=== PATIENT | male | born 1960 | race Caucasian/White ===

== ENCOUNTER 2016-06-13 08:00 | Outpatient (CLI) | payer OTHER | END 2016-06-13 08:01 | disposition home or self-care (01) | DX: E78.00 Pure hypercholesterolemia, unspecified (principal); R07.9 Chest pain, unspecified ==

== ENCOUNTER 2016-07-19 10:38 | Outpatient (CLI) | payer OTHER ==
[2016-07-19] MEDS ORDERED: ADENOSINE 60 MG/20 ML VIAL IVP ONE (13:30)
== END 2016-07-19 10:39 | disposition home or self-care (01) ==
DX: R07.9 Chest pain, unspecified (principal); I49.1 Atrial premature depolarization
CPT/HCPCS: 78452; 93017; A9500; J0153

== ENCOUNTER 2017-02-26 09:16 | Outpatient (CLI) | payer OTHER | END 2017-02-26 09:17 | disposition critical access hospital (66) | LOC: EMS 09:16 | PROVIDERS: ATTEND Surgery | DX: R11.2 Nausea with vomiting, unspecified (principal); R05 Cough; R53.1 Weakness; R50.9 Fever, unspecified | CPT/HCPCS: A0425; A0427 ==

== ENCOUNTER 2017-02-26 09:39 | Emergency (ER) | payer OTHER ==
--- NOTE | 2017-02-26 10:20 | ED Physician Documentation ---
PD HPI NVD - Stated complaint Stated Complaint: FLU SX - Chief complaint Chief Complaint: Fever - History obtained from History obtained from: Patient - History of Present Illness Timing - onset: How many days ago (few) Timing - duration: Days Timing - details: Abrupt onset, Still present Associated symptoms: Fever, Other (cough, aches, fatigue, with nausea and diarrhea. Feeling weak and lightheaded.). No: Abdominal pain Contributing factors: No: Sick contact, Bad food, Travel, Recent antibiotics Improved by: Laying still Worsened by: Eating Similar symptoms before: Has not had sx before Recently seen: Not recently seen Review of Systems Constitutional: reports: Fever, Chills, Myalgias, Fatigue Nose: reports: Congestion. denies: Rhinorrhea / runny nose Throat: denies: Sore throat Respiratory: reports: Cough GI: reports: Nausea, Vomiting, Diarrhea. denies: Abdominal Pain : denies: Dysuria, Frequency Skin: denies: Rash, Lesions Neurologic: reports: Generalized weakness, Headache. denies: Focal weakness, Numbness, Near syncope, Confused, Altered mental status, Head injury Psychiatric: reports: Insomnia Immunocompromised: denies: Immunocompromised PD PAST MEDICAL HISTORY - Past Medical History Past Medical History: Yes Cardiovascular: Hypertension, High cholesterol, Coronary artery disease, [place] Respiratory: COPD Psych: Anxiety - Past Surgical History Cardiovascular: Coronary stent - Present Medications Home Medications: Ambulatory Orders Medication Instructions Recorded Confirmed ALPRAZolam [Alprazolam] 0.25 mg PO DAILY 09/09/14 02/26/17 Aspirin [Aspir-Low] 81 mg PO DAILY 09/09/14 02/26/17 Tiotropium [place] [Spiriva] 18 mcg IH DAILY 09/09/14 02/26/17 Albuterol Sulf [Ventolin Hfa 1 - 2 puffs INH Q4HR PRN #1 inhaler 02/26/17 Inhaler] Dexamethasone [Decadron] 4 mg PO DAILY #5 tablet 02/26/17 Diphenoxylate HCl/Atropine 1 each PO Q6H PRN #12 tablet 02/26/17 [Diphenoxylate-Atrop 2.5-0.025] Ondansetron Odt [Zofran] 4 mg TL Q6H PRN #15 tablet 02/26/17 Simvastatin 80 mg PO DAILY PM 02/26/17 02/26/17 guaiFENesin/CODEINE [Robitussin AC] 10 ml PO Q6H PRN #240 ml 02/26/17 - Allergies Allergies/Adverse Reactions: Allergies Allergy/AdvReac Type Severity Reaction Status Date / Time penicillin * [penicillin] AdvReac Rash Verified 09/09/14 14:10 - Social History Does the pt smoke?: Yes Smoking Status: Current every day smoker PD ED PE NORMAL - Vitals Vital signs reviewed: Yes - General General: Alert and oriented X 3, Well developed/nourished - HEENT HEENT: Ears normal, Pharynx benign. No: Moist mucous membranes - Neck Neck: Supple, no meningeal sign, No adenopathy - Cardiac Cardiac: RRR, No murmur - Respiratory Respiratory: Clear bilaterally - Abdomen Abdomen: Normal bowel sounds, Soft, Non tender, Non distended - Male Male : Deferred - Rectal Rectal: Deferred - Back Back: No CVA TTP - Derm Derm: Normal color, Warm and dry - Extremities Extremities: No tenderness to palpate, Normal ROM s pain, No edema, No calf tenderness / cord - Neuro Neuro: Alert and oriented X 3, No motor deficit, Normal speech Results - Vitals Vitals: Oxygen O2 Source Room air - Labs Labs: Laboratory Tests 02/26/17 11:03 Sodium 138 Potassium 4.1 Chloride 106 Carbon Dioxide 24 Anion Gap 8.0 BUN 16 Creatinine 0.7 Estimated GFR (MDRD) 116 Glucose 111 H Calcium 8.5 Total Bilirubin 0.3 AST 18 ALT 19 Alkaline Phosphatase 43 Total Protein 6.1 L Albumin 3.6 Globulin 2.5 Albumin/Globulin Ratio 1.4 Lipase 24 - Rads (name of study) chest Radiology: Prelim report reviewed (c/w COPD) PD MEDICAL DECISION MAKING - ED course Complexity details: reviewed results, considered differential, d/w patient Departure - Departure Disposition: 01 Home, Self Care Clinical Impression: Dehydration, Flu-like symptoms, Nausea vomiting and diarrhea Condition: Stable Record reviewed to determine appropriate education?: Yes Instructions: ED Flu Follow-Up: Reba Fan PA-C [Primary Care Provider] - Prescriptions: Albuterol Sulf [Ventolin Hfa Inhaler] 1 - 2 puffs INH Q4HR PRN #1 inhaler PRN Reason: Shortness Of Air/Wheezing Dexamethasone [Decadron] 4 mg PO DAILY #5 tablet Diphenoxylate HCl/Atropine [Diphenoxylate-Atrop 2.5-0.025] 1 each PO Q6H PRN # 12 tablet PRN Reason: Diarrhea guaiFENesin/CODEINE [Robitussin AC] 10 ml PO Q6H PRN #240 ml PRN Reason: Cough Ondansetron Odt [Zofran] 4 mg TL Q6H PRN #15 tablet PRN Reason: Nausea / Vomiting Comments: Drink lots of fluids. Ondansetron if needed for nausea. Lomotil for diarrhea. For your breathing use the albuterol inhaler 2 puffs 4 times a day for the next 7-10 days. Decadron for inflammation of the airway should improve your breathing. Add cough medicine if needed. Recheck if not improving over the next several days. Discharge Date/Time: 02/26/17 12:59
[2017-02-26] MEDS ORDERED: ONDANSETRON 4 MG/2 ML VIAL IVP STA (10:33)
[2017-02-26] MEDS ORDERED: SODIUM CHLORIDE 0.9% 1,000 ML IV ONE ×2 (10:33→10:34)
[2017-02-26] MEDS ORDERED: DIPHENOX/ATROPINE 2.5/0.025 MG TABLET PO STA (10:34)
[2017-02-26] MEDS ORDERED: DEXAMETHASONE 10 MG/ML VIAL IVP STA (10:34)
--- NOTE | 2017-02-26 11:26 | XRAY Report ---
EXAM: CHEST RADIOGRAPHY EXAM DATE: 02/26/2017 10:52 AM. CLINICAL HISTORY: Chest pain left sided. COMPARISON: 03/09/2014. TECHNIQUE: 2 views. FINDINGS: Lungs/Pleura: Apparent 2 cm nodular density projecting over the right inferior lung, overlying the po sterior right 10th rib, was not present on the prior study. No other focal pulmonary opacity. Mild bi lateral diffuse interstitial opacities. No pneumothorax or pleural effusion. The lungs are hyperinfla leslye. Mediastinum: Heart and mediastinal contours are unremarkable. Other: None. IMPRESSION: 1. No radiographically apparent acute abnormality in the chest. 2. Findings suggest COPD. 3. Density projecting over the lower right lung may represent a confluence of shadows versus a pulmon keely nodule. Short interval follow-up chest radiography versus chest CT is recommended for further brigette luation. [facility] Referring Provider Line: [phone] SITE ID: [id number]
[2017-02-26 11:30] LABS: ALBUMIN 3.6 g/dL (3.2-5.5); ALBUMIN/GLOBULIN RATIO 1.4 (1.0-2.2); BILIRUBIN,TOTAL 0.3 mg/dL (0.2-1.0); CALCIUM 8.5 mg/dL (8.5-10.3); CREATININE 0.7 mg/dL (0.6-1.2); TOTAL PROTEIN 6.1 g/dL (6.7-8.2)
[2017-02-26 12:52] VITALS: BP 115/85
== END 2017-02-26 12:59 | disposition home or self-care (01) ==
LOC: EDUNIT# → ED 09:39
DX: E86.0 Dehydration (principal); R11.2 Nausea with vomiting, unspecified; R19.7 Diarrhea, unspecified; I10 Essential (primary) hypertension; E78.00 Pure hypercholesterolemia, unspecified; I25.10 Atherosclerotic heart disease of native coronary artery without angina pectoris; I25.2 Old myocardial infarction; F17.200 Nicotine dependence, unspecified, uncomplicated; Z79.82 Long term (current) use of aspirin
CPT/HCPCS: 36415; 71046; 80053; 83690; 96361; 96374; 99284; A9270

== ENCOUNTER 2018-04-10 09:17 | Outpatient (CLI) | payer OTHER ==
--- NOTE | 2018-04-10 15:33 | XRAY Report ---
Reason: CHEST PAIN NON CARDIAC Procedure Date: 04/10/2018 Accession Number: [id number] / [id number] Procedure: XR - Chest 4 Views X-Ray CPT Code: 62184 FULL RESULT: EXAM: CHEST RADIOGRAPHY EXAM DATE: 04/10/2018 10:08 AM. CLINICAL HISTORY: Chest pain COMPARISON: CHEST 2 VIEW 02/26/2017 10:36 AM XR CHEST PA AND LAT 04/13/2008 8:54 AM. TECHNIQUE: 2 views. FINDINGS: Lungs/Pleura: No focal opacities evident. No pleural effusion. No pneumothorax. Lungs are well expanded. Mediastinum: Heart and mediastinal contours are unremarkable. Other: None. IMPRESSION: No acute intrathoracic plain film abnormality. [facility]
== END 2018-04-10 09:18 | disposition home or self-care (01) ==
LOC: DI 09:17
PROVIDERS: ATTEND Family Medicine
DX: R07.89 Other chest pain (principal); J44.9 Chronic obstructive pulmonary disease, unspecified
CPT/HCPCS: 36415; 71048; 80053; 85025

== ENCOUNTER 2018-04-10 10:29 | Outpatient (CLI) | payer OTHER ==
[2018-04-10 18:12] LABS: ALBUMIN 4.1 g/dL (3.2-5.5); ALBUMIN/GLOBULIN RATIO 1.6 (1.0-2.2); BILIRUBIN,TOTAL 0.7 mg/dL (0.2-1.0); CALCIUM 9.1 mg/dL (8.5-10.3); CREATININE 0.8 mg/dL (0.6-1.2); TOTAL PROTEIN 6.7 g/dL (6.7-8.2)
[2018-04-10 18:18] LABS: BASOPHILS % (AUTO) 0.6 %; EOSINOPHILS # (AUTO) 0.1 10^3/uL (0.0-0.7); EOSINOPHILS % (AUTO) 0.7 %; HGB - HEMOGLOBIN 15.1 g/dL (14.0-18.0); LYMPHOCYTES # (AUTO) 1.8 10^3/uL (1.5-3.5); LYMPHOCYTES % (AUTO) 26.4 %; MEAN CORPUSCULAR HEMOGLOBIN 30.6 pg (27.0-31.0); MEAN CORPUSCULAR HGB CONC 32.9 g/dL (32.0-36.0); MEAN PLATELET VOLUME 8.7 fL (7.4-11.4); MONOCYTES # (AUTO) 0.5 10^3/uL (0.0-1.0); MONOCYTES % (AUTO) 7.6 %; NEUTROPHILS # (AUTO) 4.4 10^3/uL (1.5-6.6); NEUTROPHILS % (AUTO) 64.7 %; PLT - PLATELET COUNT 250 10^3/uL (130-450); RED BLOOD COUNT 4.92 10^6/uL (4.70-6.10); RED CELL DISTRIBUTION WIDTH 15.3 % (12.0-15.0); WHITE BLOOD COUNT 6.9 x10^3/uL (4.8-10.8)
== END 2018-04-10 10:30 | disposition home or self-care (01) ==
LOC: LAB.F 10:29
PROVIDERS: ATTEND Family Medicine
DX: R07.89 Other chest pain (principal); J44.9 Chronic obstructive pulmonary disease, unspecified
CPT/HCPCS: 36415; 80053; 85025

== ENCOUNTER 2019-11-08 20:22 | Emergency (ER) | payer OTHER ==
[2019-11-08] MEDS ORDERED: HYDROmorphone 1 MG/ML CARPUJECT IVP STA ×2 (20:42→21:38)
[2019-11-08 20:55] LABS: BASOPHILS # (AUTO) 0.1 10^3/uL (0.0-0.1); BASOPHILS % (AUTO) 2.4 %; EOSINOPHILS # (AUTO) 0.1 10^3/uL (0.0-0.7); EOSINOPHILS % (AUTO) 3.3 %; HGB - HEMOGLOBIN 15.2 g/dL (14.0-18.0); LYMPHOCYTES # (AUTO) 1.4 10^3/uL (1.5-3.5); LYMPHOCYTES % (AUTO) 31.9 %; MEAN CORPUSCULAR HEMOGLOBIN 30.8 pg (27.0-31.0); MEAN CORPUSCULAR HGB CONC 32.8 g/dL (32.0-36.0); MEAN CORPUSCULAR VOLUME 93.9 fL (80.0-94.0); MEAN PLATELET VOLUME 10.5 fL (7.4-11.4); MONOCYTES # (AUTO) 0.6 10^3/uL (0.0-1.0); MONOCYTES % (AUTO) 15.1 %; NEUTROPHILS % (AUTO) 47.1 %; PLT - PLATELET COUNT 210 10^3/uL (130-450); RED BLOOD COUNT 4.93 10^6/uL (4.70-6.10); RED CELL DISTRIBUTION WIDTH 14.6 % (12.0-15.0); WHITE BLOOD COUNT 4.2 x10^3/uL (4.8-10.8)
[2019-11-08 21:08] LABS: ALBUMIN 4.1 g/dL (3.2-5.5); ALBUMIN/GLOBULIN RATIO 1.5 (1.0-2.2); BILIRUBIN,TOTAL 0.6 mg/dL (0.2-1.0); CALCIUM 9.4 mg/dL (8.5-10.3); TOTAL PROTEIN 6.8 g/dL (6.7-8.2)
[2019-11-08] MEDS ORDERED: IOVERSOL 320 100 ML VIAL IVP ONE ×2 (21:08→21:31)
--- NOTE | 2019-11-08 21:23 | ED Physician Documentation ---
History of Present Illness - Stated complaint Stated Complaint: RIGHT BACKSIDE PX - Chief complaint Chief Complaint: Back Pain - History obtained from History obtained from: Patient - History of Present Illness Timing: How many days ago (5) Pain level max: 10 Pain level now: 10 - Additonal information Additional information: 59-year-old male presents to the emergency department complaining of right perirectal pain. Ongoing for the past 5 days. Worse with movement, nothing makes it better. Unable to sit or lie down. Does not recall any injury. Denies any sexual activity over the past 10 years with a partner. Denies any rectal foreign bodies. No fevers. No chills. States he occasionally has a difficult time urinating. Review of Systems Ten Systems: 10 systems reviewed and negative Constitutional: denies: Fever, Chills Ears: denies: Ear pain Nose: denies: Rhinorrhea / runny nose, Congestion Respiratory: denies: Cough GI: denies: Nausea, Vomiting, Diarrhea : reports: Hesitancy. denies: Unable to Void Skin: denies: Rash Musculoskeletal: denies: Neck pain, Back pain Neurologic: denies: Focal weakness, Numbness, Headache PD PAST MEDICAL HISTORY - Past Medical History Cardiovascular: Hypertension, High cholesterol, Coronary artery disease, [place] Respiratory: COPD Psych: Anxiety - Past Surgical History Cardiovascular: Coronary stent - Present Medications Home Medications: Ambulatory Orders Medication Instructions Recorded Confirmed ALPRAZolam [Alprazolam] 0.25 mg PO DAILY 09/09/14 02/26/17 Aspirin [Aspir-Low] 81 mg PO DAILY 09/09/14 02/26/17 Tiotropium [place] [Spiriva] 18 mcg IH DAILY 09/09/14 02/26/17 Albuterol Sulf [Ventolin Hfa 1 - 2 puffs INH Q4HR PRN #1 inhaler 02/26/17 Inhaler] Diphenoxylate HCl/Atropine 1 each PO Q6H PRN #12 tablet 02/26/17 [Diphenoxylate-Atrop 2.5-0.025] Ondansetron Odt [Zofran] 4 mg TL Q6H PRN #15 tablet 02/26/17 Simvastatin 80 mg PO DAILY PM 02/26/17 02/26/17 dexAMETHasone [Decadron] 4 mg PO DAILY #5 tablet 02/26/17 guaiFENesin/CODEINE [Robitussin AC] 10 ml PO Q6H PRN #240 ml 02/26/17 Ondansetron Odt [Zofran] 4 mg TL Q6H PRN #10 tablet 11/08/19 Oxycodone HCl/Acetaminophen 1 - 2 each PO Q6H PRN #14 tablet 11/08/19 [Percocet 5-325 mg Tablet] Sulfamethox/Trimeth 800/160 1 each PO BID #84 tablet 11/08/19 [Bactrim Ds 800/160] - Allergies Allergies/Adverse Reactions: Allergies Allergy/AdvReac Type Severity Reaction Status Date / Time penicillin * [penicillin] AdvReac Rash Verified 11/08/19 20:30 - Social History Does the pt smoke?: Yes Smoking Status: Current every day smoker Does the pt drink ETOH?: No Does the pt have substance abuse?: No - Immunizations Immunizations are current?: Yes - POLST Patient has POLST: No PD ED PE NORMAL - Vitals Vital signs reviewed: Yes - General General: Alert and oriented X 3, Other (Patient appears uncomfortable) - HEENT HEENT: Moist mucous membranes - Neck Neck: Supple, no meningeal sign - Cardiac Cardiac: RRR, Strong equal pulses - Respiratory Respiratory: No respiratory distress, Clear bilaterally - Abdomen Abdomen: Soft, Non tender, Non distended - Rectal Rectal: Other (Perirectal tenderness along the right edge. Unable to tolerate a rectal exam. Tender externally over the prostate as well) - Back Back: No spinal TTP (No midline tenderness to palpation or percussion. No step- off or deformity.) - Derm Derm: Warm and dry - Extremities Extremities: No edema - Neuro Neuro: Alert and oriented X 3 Results - Vitals Vitals: Vital Signs - 24 hr 11/08/19 20:30 Temperature 36.6 C Heart Rate 64 Respiratory 16 Rate Blood Pressure 122/72 O2 Saturation 95 Oxygen O2 Source Room air - Labs Labs: Laboratory Tests 11/08/19 11/08/19 20:46 20:46 WBC 4.2 L RBC 4.93 Hgb 15.2 Hct 46.3 MCV 93.9 MCH 30.8 MCHC 32.8 RDW 14.6 Plt Count 210 MPV 10.5 Neut # (Auto) 2.0 Lymph # (Auto) 1.4 L [place] # (Auto) 0.6 Eos # (Auto) 0.1 Baso # (Auto) 0.1 Absolute Nucleated RBC 0.00 Nucleated RBC % 0.0 Sodium 140 Potassium 4.2 Chloride 107 Carbon Dioxide 18 L Anion Gap 15.0 H BUN 17 Creatinine 1.0 Estimated GFR (MDRD) 76 L Glucose 113 H Calcium 9.4 Total Bilirubin 0.6 AST 14 ALT 16 Alkaline Phosphatase 43 Total Protein 6.8 Albumin 4.1 Globulin 2.7 Albumin/Globulin Ratio 1.5 Lipase 97 H - Rads (name of study) CT abdomen pelvis Radiology: Prelim report reviewed, EMP read contemporaneously, See rad report PD MEDICAL DECISION MAKING - ED course Complexity details: reviewed results, re-evaluated patient, considered differential, d/w patient ED course: Patient with what appears to be acute bacterial prostatitis. Pain well contr olled. We will place on Bactrim for 6 weeks at home. Patient will follow-up with his doctor for repeat evaluation. No acute findings on CT scan. Patient denies ever having heavy alcohol use. He will follow-up with his doctor for the pancreatic calcifications. Patient counseled regarding signs and symptoms for which I believe and urgent re-evaluation would be necessary. Patient with good understanding of and agreement to plan and is comfortable going home at this time This document was made in part using voice recognition software. While efforts are made to proofread this document, sound alike and grammatical errors may occur. 1. No acute abnormality is identified in the abdomen or pelvis. 2. Mild prostatomegaly. 3. Innumerable coarse calcifications in the pancreas are compatible with chronic pancreatitis. Departure - Departure Disposition: 01 Home, Self Care Clinical Impression: Prostatitis Qualifiers: Prostatitis type: acute Qualified Code(s): N41.0 - Acute prostatitis Condition: Good Instructions: ED Prostatitis Follow-Up: your,doctor in 1 week [Other] Prescriptions: Sulfamethox/Trimeth 800/160 [Bactrim Ds 800/160] 1 each PO BID #84 tablet Oxycodone HCl/Acetaminophen [Percocet 5-325 mg Tablet] 1 - 2 each PO Q6H PRN #14 tablet PRN Reason: pain Ondansetron Odt [Zofran] 4 mg TL Q6H PRN #10 tablet PRN Reason: Nausea / Vomiting Comments: Take all antibiotics until gone. Follow-up with your doctor for a repeat evaluation within 1 week. Return if you worsen. Return especially for fevers or uncontrolled pain. Your doctor may choose to stop the antibiotic therapy at 4 weeks if you are fully clinically healed, but this will require an examination by your doctor. Normally you are treated for 6 weeks. Do not drink alcohol or drive while on narcotic pain medicine. Note that many narcotic pain relievers also contain tylenol/acetaminophen. Please ensure that your total dose of acetaminophen from all sources does not exceed 3 grams (3000mg) per day. You may constipated on this medication, take a stool softener such as "Colace" twice a day while you are on it. Also recommend a glox-hsk-wrznesj laxative such as senna or MiraLAX any day that you do not have a bowel movement. If you received narcotic pain medication in the emergency department, do not drive or operate machinery for the next 24 hours.
[2019-11-08] MEDS ORDERED: SULFAMETH/TRIMETH DS 800/160 MG TABLET PO STA (21:38)
--- NOTE | 2019-11-08 21:43 | CT Report ---
PROCEDURE: Abdomen/Pelvis W INDICATIONS: R perianal and prostate pain CONTRAST: IV CONTRAST: Optiray 320 ml: 100 PO CONTRAST: *NO PO CONTRAST TECHNIQUE: After the administration of intravenous contrast, 5 mm thick sections acquired from the diaphragms to the symphysis. 5 mm thick coronal and sagittal reformats were acquired. For radiation dose reducti on, the following was used: automated exposure control, adjustment of mA and/or kV according to lucila ent size. COMPARISON: None. FINDINGS: Image quality: Excellent. ABDOMEN: Lung bases: Multiple small cysts versus mild emphysematous changes in the bilateral lung bases. Heart size is normal. Solid organs: Liver and spleen are normal in size and enhancement. Gallbladder appears normal. Dennis iary system is non dilated. Calcifications are seen throughout the prostate compatible with chronic p ancreatitis. The pancreatic duct is not significantly enlarged. No adrenal nodules. Kidneys demonstr ate normal size and enhancement, without hydronephrosis. Peritoneum and bowel: Bowel loops demonstrate normal wall thickness and caliber. Normal appendix. N o free fluid or air. Nodes and vessels: No retroperitoneal or mesenteric adenopathy by size criteria. Aorta and inferior vena cava are normal in size. Miscellaneous: No ventral hernias. PELVIS: Genitourinary: Bladder wall thickness is normal. The prostate is mildly enlarged and impinges upon the base of the bladder. The seminal vesicles are symmetric. Miscellaneous: No inguinal hernias or adenopathy. Bones: No suspicious bony lesions. No vertebral body compression fractures. IMPRESSION: 1. No acute abnormality is identified in the abdomen or pelvis. 2. Mild prostatomegaly. 3. Innumerable coarse calcifications in the pancreas are compatible with chronic pancreatitis. Reviewed by: Soren Soto MD on 11/08/2019 9:42 PM PDT Approved by: Soren Soto MD on 11/08/2019 9:42 PM PDT Station ID: [id number]
[2019-11-08] MEDS ORDERED: oxyCODONE/ACET 5/325 Prepack 4 PO STA (21:56)
[2019-11-08] MEDS: oxyCODONE 5 MG TABLET PO STA ×2 (22:05→22:34)
[2019-11-08] MEDS: ONDANSETRON 4 MG/2 ML VIAL IVP STA (22:46)
[2019-11-09] MEDS ORDERED: ONDANSETRON 4 MG/2 ML VIAL IVP STA (00:43)
[2019-11-09] MEDS ORDERED: ONDANSETRON 4 MG/2 ML VIAL ONE (00:52)
[2019-11-09 01:16] VITALS: BP 116/70
== END 2019-11-09 01:17 | disposition home or self-care (01) ==
LOC: ED 20:22
DX: N41.0 Acute prostatitis (principal); I25.10 Atherosclerotic heart disease of native coronary artery without angina pectoris; I11.9 Hypertensive heart disease without heart failure; Z95.5 Presence of coronary angioplasty implant and graft; Z79.82 Long term (current) use of aspirin; F17.200 Nicotine dependence, unspecified, uncomplicated
CPT/HCPCS: 36415; 74177; 80053; 83690; 85025; 96374; 96375; 96376; 99284; A9270; J1170; Q9967